=== PATIENT | male | born 1950 | race Caucasian/White ===

== ENCOUNTER 2024-08-15 09:00 | Outpatient (RCR) | payer MEDICARE, SELFPAY ==
[2024-04-18 12:54] LABS: Basophils Absolute Auto 0.03 K/uL (0.00-0.30); Basophils Percent Auto 0.6 % (0.0-3.0); Eosinophils Absolute Auto 0.21 K/uL (0.00-0.50); Eosinophils Percent Auto 4.5 % (0.0-7.0); Hematocrit 41.1 % (37.0-53.0); Hemoglobin* 13.2 gm/dL (13.5-17.5); Immature Granulocytes Abs Auto 0.01 K/uL (0.00-0.30); Immature Granulocytes Pct Auto 0.2 %; Lymphocytes Percent Auto 13.4 % (20-44); Mean Corpuscular HGB Conc 32 gm/dL (32-36); Mean Corpuscular Hemoglobin 31 pg (26-34); Mean Corpuscular Volume 97 fL (80-100); Monocytes Percent Auto 8.3 % (0.0-11.0); Platelet Count* 218 K/uL (140-440); RDW Coefficient of Variation % 13.2 % (11.5-15.5); Red Blood Count 4.23 m/uL (4.30-5.90); White Blood Count* 4.71 K/uL (4.50-11.00)
[2024-04-18 13:01] LABS: Slide Review Reflex No
[2024-04-18 13:05] LABS: Albumin* 4.5 g/dL (3.3-5.0)
[2024-04-18 13:06] LABS: Chloride* 100 mmol/L (96-114); Potassium* 4.4 mmol/L (3.6-5.1); Sodium* 138 mmol/L (135-149)
[2024-04-18 13:08] LABS: Anion Gap 8 mEq/L (7-15); Aspartate Amino Transferase* 25 U/L (12-35); Bilirubin Total* 0.5 mg/dL (0.1-1.5); Carbon Dioxide* 30 mmol/L (20-32); Creatinine* 0.8 mg/dL (0.5-1.5); Estimated Glomerular Filt Rate 93 ml/min
[2024-04-18 13:09] LABS: Alanine Aminotransferase* 12 U/L (4-50); Alkaline Phosphatase* 72 U/L (40-150); Blood Urea Nitrogen* 11 mg/dL (7-30); Calcium* 9.4 mg/dL (8.4-10.6); Glucose* 87 mg/dL (60-115); Total Protein* 7.8 g/dL (6.0-8.3)
[2024-04-18 13:44] LABS: PSA Diagnostic* < 0.06 ng/mL (0.10-4.00)
--- NOTE | 2024-04-25 13:53 | URNOTE ---
Request received for authorization for?Leuprolide Acetate? ([id number]). Prior authorization is not required as services are based on medical necessity and follow Medicare guidelines.
[2024-05-16 12:51] LABS: Basophils Absolute Auto 0.03 K/uL (0.00-0.30); Basophils Percent Auto 0.5 % (0.0-3.0); Eosinophils Absolute Auto 0.14 K/uL (0.00-0.50); Eosinophils Percent Auto 2.4 % (0.0-7.0); Hematocrit 41.8 % (37.0-53.0); Hemoglobin* 13.3 gm/dL (13.5-17.5); Immature Granulocytes Abs Auto 0.01 K/uL (0.00-0.30); Immature Granulocytes Pct Auto 0.2 %; Lymphocytes Percent Auto 12.4 % (20-44); Mean Corpuscular HGB Conc 32 gm/dL (32-36); Mean Corpuscular Hemoglobin 31 pg (26-34); Mean Corpuscular Volume 98 fL (80-100); Monocytes Percent Auto 7.2 % (0.0-11.0); Neutrophils Percent Auto 77.3 % (42.0-72.0); Platelet Count* 180 K/uL (140-440); RDW Coefficient of Variation % 13.5 % (11.5-15.5); Red Blood Count 4.26 m/uL (4.30-5.90); White Blood Count* 5.73 K/uL (4.50-11.00)
[2024-05-16 12:53] LABS: Slide Review Reflex No
[2024-05-16 13:03] LABS: Hemoglobin A1C* 5.2 % (0-5.6)
[2024-05-16 13:04] LABS: Albumin* 4.3 g/dL (3.3-5.0); Chloride* 101 mmol/L (96-114)
[2024-05-16 13:05] LABS: Potassium* 4.3 mmol/L (3.6-5.1); Sodium* 138 mmol/L (135-149)
[2024-05-16 13:07] LABS: Anion Gap 7 mEq/L (7-15); Aspartate Amino Transferase* 21 U/L (12-35); Bilirubin Total* 0.6 mg/dL (0.1-1.5); Blood Urea Nitrogen* 17 mg/dL (7-30); Carbon Dioxide* 30 mmol/L (20-32); Creatinine* 0.9 mg/dL (0.5-1.5); Est. Creatinine Clearance* 61.51; Estimated Glomerular Filt Rate 90 ml/min; Total Protein* 7.5 g/dL (6.0-8.3)
[2024-05-16 13:08] LABS: Alanine Aminotransferase* 12 U/L (4-50); Alkaline Phosphatase* 63 U/L (40-150); Calcium* 9.3 mg/dL (8.4-10.6); Glucose* 98 mg/dL (60-115)
[2024-05-16] MEDS: LEUPROLIDE ACETATE 22.5 MG (SQ) SYRINGE SUBCUT (14:25)
[2024-05-17 22:54] LABS: Cortisol, Serum 6.5 ug/dL
[2024-05-18 07:34] LABS: Adrenocorticotropic Hormone 56.2 pg/mL (7.2-63.3)
--- NOTE | 2024-08-01 15:36 | ONC.NURNOTE ---
Patient did not get monthly labs at his local clinic-lab orders were faxed at the time of his May appt will be going tomorrow for CBC CMP PSA [facility] [phone]
--- NOTE | 2024-08-05 14:37 | ONC.NURNOTE ---
3 -4 calls to [facility] to have CBC CMP PSA results faxed to [facility] never received the CBC results- not clear if canceled will need to repeat here when comes in for clinic appt
[2024-08-15 09:30] LABS: Basophils Absolute Auto 0.03 K/uL (0.00-0.30); Basophils Percent Auto 0.5 % (0.0-3.0); Eosinophils Absolute Auto 0.09 K/uL (0.00-0.50); Eosinophils Percent Auto 1.4 % (0.0-7.0); Hematocrit 43.3 % (37.0-53.0); Immature Granulocytes Abs Auto 0.02 K/uL (0.00-0.30); Immature Granulocytes Pct Auto 0.3 %; Lymphocytes Percent Auto 13.3 % (20-44); Mean Corpuscular HGB Conc 32 gm/dL (32-36); Mean Corpuscular Hemoglobin 32 pg (26-34); Mean Corpuscular Volume 100 fL (80-100); Monocytes Percent Auto 6.5 % (0.0-11.0); Platelet Count* 210 K/uL (140-440); RDW Coefficient of Variation % 13.6 % (11.5-15.5); Red Blood Count 4.34 m/uL (4.30-5.90); White Blood Count* 6.48 K/uL (4.50-11.00)
[2024-08-15 09:33] LABS: Slide Review Reflex No
[2024-08-15] MEDS: LEUPROLIDE ACETATE 22.5 MG (SQ) SYRINGE SUBCUT (10:50)
== END 2024-10-15 23:59 | disposition home or self-care (01) ==
LOC: CCIC 09:00
PROVIDERS: Clinical Nurse Specialist; Physician Assistant; Visit Provider Internal Medicine Hematology & Oncology
DX: C61 Malignant neoplasm of prostate (principal); E78.5 Hyperlipidemia, unspecified; D51.9 Vitamin B12 deficiency anemia, unspecified; R73.03 Prediabetes; I12.9 Hypertensive chronic kidney disease with stage 1 through stage 4 chronic kidney disease, or unspecified chronic kidney disease; N18.2 Chronic kidney disease, stage 2 (mild); Z87.891 Personal history of nicotine dependence
CPT/HCPCS: 36415; 80053; 82024; 82533; 83036; 84153; 85025; 96401; 96402; 99202; 99205; 99214; 99215; G0463; J9217

== ENCOUNTER 2025-02-15 14:36 | Outpatient (CLI) | payer MEDICARE, SELFPAY | END 2025-02-15 14:37 | disposition home or self-care (01) | LOC: NFLDREF 02-19 02:49 | PROVIDERS: Visit Provider Physician Assistant | DX: C61 Malignant neoplasm of prostate (principal); C77.2 Secondary and unspecified malignant neoplasm of intra-abdominal lymph nodes | CPT/HCPCS: 80076 ==

== ENCOUNTER 2025-03-13 13:19 | Outpatient (CLI) | payer MEDICARE, SELFPAY ==
--- NOTE | 2025-03-13 14:00 | CRLHL7_ITS ---
For Patients: As a result of the Century Cures Act, medical imaging exams and procedure reports are released immediately into your electronic medical record. You may view this report before your referring provider. If you have questions, please contact your health care provider. INDICATION: Malignant neoplasm of prostate, metastatic disease evaluation. TECHNIQUE: CT chest acquired with 75 cc Isovue 370 IV contrast. COMPARISON: None. FINDINGS: Lungs and pleura: Mild emphysema. Discoid atelectasis in the inferior lingula. Otherwise no acute infiltrates. 3 mm left lower lobe nodule (series 3, image 100). No pleural effusions, pleural thickening, or pneumothorax. Heart and vasculature: Heart size is normal. Thoracic aorta and pulmonary artery are normal in caliber. Mild coronary artery calcifications. Lymph nodes/mediastinum: No mediastinal, hilar, or axillary adenopathy. Thyroid gland is unremarkable. Chest wall: No masses. Upper abdomen: No significant findings. Bones: No suspicious osseous lesions. Mild thoracic spondylosis. Old bilateral rib fractures. IMPRESSION: 1. 3 mm left lower lobe nodule, indeterminate. 2. Otherwise no evidence of metastatic disease in the chest. Please note that all CT scans at this facility use dose modulation, iterative reconstruction, and/or weight-based dosing when appropriate to reduce radiation dose to as low as reasonably achievable. Dictated by Vinay Lozada MD @ 03/20/2025 3:04:37 PM (Electronically Signed)
[2025-03-13 14:05] LABS: Creatinine* 0.8 mg/dL (0.5-1.5); Estimated Glomerular Filt Rate 93 ml/min
== END 2025-03-13 13:20 | disposition home or self-care (01) ==
PROVIDERS: Visit Provider Physician Assistant
DX: C61 Malignant neoplasm of prostate (principal); R91.8 Other nonspecific abnormal finding of lung field; C77.2 Secondary and unspecified malignant neoplasm of intra-abdominal lymph nodes
CPT/HCPCS: 36415; 71260; 82565; Q9967

== ENCOUNTER 2025-03-30 16:32 | Outpatient (CLI) | payer MEDICARE, SELFPAY ==
--- NOTE | 2025-03-30 17:00 | CRLHL7_ITS ---
For Patients: As a result of the Century Cures Act, medical imaging exams and procedure reports are released immediately into your electronic medical record. You may view this report before your referring provider. If you have questions, please contact your health care provider. Indication: Prostate cancer, lung nodule Technique: Patient was injected in the left antecubital vein with 12.85 mCi FDG intravenously, with PET-CT imaging performed from the skull base to mid thighs [address] images were obtained for attenuation correction and localization, and do not replace a diagnostic quality examination. Blood glucose: 69 mg/dL. Comparison: Chest CT performed 03/13/2025 Findings: Liver background: SUVMean 3.4 Mediastinal blood pool background: SUVMean 3.0 Head and Neck Brain: No abnormal foci of uptake appreciated. Sinuses, orbits, mastoids: No significant abnormality or abnormal uptake appreciated. Oral cavity, pharynx, larynx: No significant abnormality or abnormal uptake appreciated. Lymph nodes: No enlarged or avid nodes appreciated. Thyroid: Grossly unremarkable. Chest Lungs: There is a nodule on the left lung measuring 15 x 8 millimeters, SUV max 19.3. Distal atelectasis noted. Multiple nodules which appear to be pleural in nature without definite CT correlate are noted throughout the left lung most avid measuring SUV max 7.8. Mediastinum: Calcified atherosclerosis. Lymph nodes: No enlarged or avid nodes appreciated. Abdomen and Pelvis Hepatobiliary: No abnormal foci of uptake. No significant abnormality appreciated. Spleen: Unremarkable. Pancreas: Unremarkable. Adrenal glands: Unremarkable. Kidneys: Parenchyma appears grossly unremarkable with no abnormal uptake appreciated. No calculi. No hydronephrosis. Bowel: No abnormal focal uptake appreciated. No mass lesion. Vascular: Calcified atherosclerosis. Lymph nodes: No enlarged or avid nodes appreciated. Peritoneum: No avid mass. No free air. No free fluid. : Postsurgical changes. Mild bladder wall thickening. Soft tissues: No avid soft tissue lesion appreciated. Bones: Solitary uptake was then a chronic right rib fracture along the 5th rib likely related to osseous remodeling. Impression: 1. Marked avidity within a 15 x 8 millimeter left lung nodule within the lingula abutting the fissure concerning for malignancy. Note is also made of multiple tiny areas of uptake along the left pleura without definite CT correlate suspicious for tiny pleural metastases. 2. Focal uptake within a chronic fracture of the right lateral 5th rib likely related to continued osseous remodeling without definite underlying osseous lesion appreciated. 3. No other focal abnormal uptake appreciated. Dictated by Dre Celestin MD @ 04/01/2025 9:01:29 PM (Electronically Signed)
== END 2025-03-30 16:33 | disposition home or self-care (01) ==
LOC: RAD 16:44
PROVIDERS: Visit Provider Physician Assistant
DX: R91.8 Other nonspecific abnormal finding of lung field (principal)
CPT/HCPCS: 78815; A9552

== ENCOUNTER 2025-05-03 11:30 | Outpatient (RCR) | payer MEDICARE, SELFPAY ==
[2024-11-07 10:39] LABS: Hematocrit 43.4 % (37.0-53.0); Hemoglobin* 14.1 gm/dL (13.5-17.5); Immature Granulocytes Abs Auto 0.01 K/uL (0.00-0.30); Immature Granulocytes Pct Auto 0.2 %; Mean Corpuscular HGB Conc 33 gm/dL (32-36); Mean Corpuscular Hemoglobin 32 pg (26-34); Mean Corpuscular Volume 98 fL (80-100); RDW Coefficient of Variation % 13.2 % (11.5-15.5); Red Blood Count 4.43 m/uL (4.30-5.90); White Blood Count* 4.87 K/uL (4.50-11.00)
[2024-11-07 10:48] LABS: Lymphocytes Absolute Auto 0.80 K/uL (0.90-2.90); Slide Review Reflex No
[2024-11-07 10:59] LABS: Albumin* 4.5 g/dL (3.3-5.0); Chloride* 104 mmol/L (96-114); Potassium* 4.0 mmol/L (3.6-5.1); Sodium* 142 mmol/L (135-149)
[2024-11-07 11:01] LABS: Anion Gap 9 mEq/L (7-15); Bilirubin Total* 0.7 mg/dL (0.1-1.5); Blood Urea Nitrogen* 20 mg/dL (7-30); Carbon Dioxide* 29 mmol/L (20-32); Creatinine* 0.9 mg/dL (0.5-1.5); Estimated Glomerular Filt Rate 90 ml/min
[2024-11-07 11:02] LABS: Alanine Aminotransferase* 15 U/L (4-50); Alkaline Phosphatase* 62 U/L (40-150); Aspartate Amino Transferase* 20 U/L (12-35); Calcium* 9.3 mg/dL (8.4-10.6); Glucose* 110 mg/dL (60-115); Total Protein* 7.6 g/dL (6.0-8.3)
[2024-11-07 11:35] LABS: PSA Diagnostic* < 0.06 ng/mL (0.10-4.00)
[2024-11-07] MEDS: LEUPROLIDE ACETATE (ELIGARD) 22.5 MG INJ SUBCUT (12:02)
--- NOTE | 2024-11-28 14:13 | ONC.NURNOTE ---
Lab frequency discussed with Melyssa- Due to low dose abiaterone- monitoring of lab has been Q 3 mths intervals next lab will be due with RTC in January no additional monthly lab needed at this time
[2025-01-30 10:22] LABS: Hematocrit 46.2 % (37.0-53.0); Hemoglobin* 14.7 gm/dL (13.5-17.5); Immature Granulocytes Abs Auto 0.01 K/uL (0.00-0.30); Immature Granulocytes Pct Auto 0.1 %; Mean Corpuscular HGB Conc 32 gm/dL (32-36); Mean Corpuscular Hemoglobin 32 pg (26-34); Mean Corpuscular Volume 100 fL (80-100); RDW Coefficient of Variation % 13.7 % (11.5-15.5); Red Blood Count 4.64 m/uL (4.30-5.90); White Blood Count* 6.74 K/uL (4.50-11.00)
[2025-01-30 10:29] LABS: Lymphocytes Absolute Auto 0.90 K/uL (0.90-2.90); Slide Review Reflex No
[2025-01-30 10:41] LABS: Albumin* 4.5 g/dL (3.3-5.0); Chloride* 106 mmol/L (96-114); Potassium* 3.6 mmol/L (3.6-5.1); Sodium* 145 mmol/L (135-149)
[2025-01-30 10:44] LABS: Alanine Aminotransferase* 19 U/L (4-50); Alkaline Phosphatase* 57 U/L (40-150); Anion Gap 9 mEq/L (7-15); Aspartate Amino Transferase* 27 U/L (12-35); Bilirubin Total* 0.7 mg/dL (0.1-1.5); Blood Urea Nitrogen* 14 mg/dL (7-30); Calcium* 9.9 mg/dL (8.4-10.6); Carbon Dioxide* 30 mmol/L (20-32); Creatinine* 0.9 mg/dL (0.5-1.5); Est. Creatinine Clearance* 60.59; Estimated Glomerular Filt Rate 90 ml/min; Glucose* 94 mg/dL (60-115); Total Protein* 7.9 g/dL (6.0-8.3)
[2025-01-30 11:15] LABS: PSA Diagnostic* 0.14 ng/mL (0.10-4.00)
[2025-01-30] MEDS: LEUPROLIDE ACETATE (ELIGARD) 22.5 MG INJ SUBCUT (12:42)
[2025-01-31 09:56] LABS: Testosterone, Adult Male <3 ng/dL (300-720)
--- NOTE | 2025-02-02 12:39 | ONC.NURNOTE ---
Addendum entered by Massiel Robison RN 02/06/25 12:36: Upcoming appts reviewed to son Abraham: PSMA PET in [facility] 1st floor 02/21/25 2 pm arrival- prePET instructions will be delivered to patient thru his [place] portal Follow up with Melyssa and repeat LFTs on 02/23/25 Other lab: LFTs due in [facility] later this week Abraham is agreeable to this schedule Original Note: Coordination of next steps with son Abraham: -aware that order placed for PSMA PET to be done in [place] next 1-2 weeks -RTC 3 weeks -increase abiraterone dose to 500mg/day -weekly LFTs to be done at [facility]
--- NOTE | 2025-02-13 14:39 | ONC.NURNOTE ---
FMLA forms completed by RN and signed by Dr Long Per Abraham's request- form was emailed to his work at [email or web address] copy placed in patients chart
--- NOTE | 2025-02-17 09:15 | ONC.NURNOTE ---
LFTs reviewed by Melyssa HESTER and called to Abraham by fha underwriter next weeks appt reviewed
[2025-02-23 10:43] LABS: Albumin* 4.4 g/dL (3.3-5.0)
[2025-02-23 10:45] LABS: Alanine Aminotransferase* 26 U/L (4-50); Aspartate Amino Transferase* 35 U/L (12-35); Total Protein* 7.7 g/dL (6.0-8.3)
[2025-02-23 10:46] LABS: Alkaline Phosphatase* 64 U/L (40-150); Bilirubin Direct* 0.2 mg/dL (0.0-0.5); Bilirubin Total* 0.9 mg/dL (0.1-1.5)
--- NOTE | 2025-03-02 14:28 | ONC.NURNOTE ---
Pt's son Abraham called stating pt has a new pain in his neck that hurts to touch and a cramping radiating pain to his shoulders. Pt was examined one week ago by Melyssa Garcia and did not have this pain at that time. Pt rates pain a 6-710. Discussed with Melyssa Garcia PA-C and se recommends having pt be examined by urgent care or another provider today for possible imaging. Pt's son Abraham verbalized understanding of Melyssa Garcia's recommendation.
[2025-03-23 11:51] LABS: Albumin* 4.4 g/dL (3.3-5.0); Chloride* 103 mmol/L (96-114); Potassium* 4.0 mmol/L (3.6-5.1); Sodium* 139 mmol/L (135-149)
[2025-03-23 11:53] LABS: Blood Urea Nitrogen* 15 mg/dL (7-30); Creatinine* 0.9 mg/dL (0.5-1.5); Est. Creatinine Clearance* 60.59; Estimated Glomerular Filt Rate 90 ml/min
[2025-03-23 11:54] LABS: Alanine Aminotransferase* 14 U/L (4-50); Alkaline Phosphatase* 54 U/L (40-150); Anion Gap 6 mEq/L (7-15); Aspartate Amino Transferase* 23 U/L (12-35); Bilirubin Direct* 0.1 mg/dL (0.0-0.5); Bilirubin Total* 0.7 mg/dL (0.1-1.5); Calcium* 10.0 mg/dL (8.4-10.6); Carbon Dioxide* 30 mmol/L (20-32); Glucose* 91 mg/dL (60-115); Total Protein* 7.4 g/dL (6.0-8.3)
[2025-03-23 12:25] LABS: PSA Diagnostic* 0.33 ng/mL (0.10-4.00)
--- NOTE | 2025-03-24 10:17 | ONC.NURNOTE ---
Foundation One liquid biopsy sent
--- NOTE | 2025-04-03 15:19 | ONC.NURNOTE ---
Addendum entered by Massiel Robison RN 04/04/25 10:00: Daughter Mirela Nettles phoned today- her brother is traveling until tomorrow, but got the message about the pulmonology referral Mirela requests [facility]- because it is closer for [place]- a Thursday or Thursday would be preferable Mirela is asking about next steps- which is unknown until biopsy is done Original Note: Left message with son Abraham regarding pt needing a pulmonary consult. Melyssa Garcia PA-C wondering if pt would like to go to [facility] or [facility] for the consult. Will need to update Melyssa with this information.
--- NOTE | 2025-04-07 08:11 | ONC.NURNOTE ---
Pulmonology referral faxed to [facility] Cristina Fernando.
--- NOTE | 2025-04-13 09:56 | ONC.NURNOTE ---
Pt's son called to inquire about size of lung nodule on PET scan as [facility] needs that info to schedule. RN provided Abraham with the info he needed.
--- NOTE | 2025-04-17 09:49 | ONC.NURNOTE ---
Patient's daughter called today requesting to have patient's records sent to [facility], per daughter patient has a new lung nodule and they want to move somewhere closer to home. He has an appt on 05/03 that they want to keep. RN transferred daughter to Medical Records to help with having records sent.
[2025-05-03 12:07] LABS: Chloride* 102 mmol/L (96-114); Hematocrit 41.9 % (37.0-53.0); Hemoglobin* 13.3 gm/dL (13.5-17.5); Immature Granulocytes Abs Auto 0.00 K/uL (0.00-0.30); Immature Granulocytes Pct Auto 0.0 %; Mean Corpuscular HGB Conc 32 gm/dL (32-36); Mean Corpuscular Hemoglobin 32 pg (26-34); Mean Corpuscular Volume 101 fL (80-100); RDW Coefficient of Variation % 13.4 % (11.5-15.5); Red Blood Count 4.14 m/uL (4.30-5.90); White Blood Count* 5.60 K/uL (4.50-11.00)
[2025-05-03 12:08] LABS: Albumin* 4.0 g/dL (3.3-5.0); Lymphocytes Absolute Auto 0.70 K/uL (0.90-2.90); Potassium* 4.2 mmol/L (3.6-5.1); Slide Review Reflex No; Sodium* 141 mmol/L (135-149)
[2025-05-03 12:10] LABS: Blood Urea Nitrogen* 20 mg/dL (7-30); Creatinine* 0.9 mg/dL (0.5-1.5); Est. Creatinine Clearance* 60.59; Estimated Glomerular Filt Rate 90 ml/min
[2025-05-03 12:11] LABS: Alanine Aminotransferase* 14 U/L (4-50); Alkaline Phosphatase* 53 U/L (40-150); Anion Gap 5 mEq/L (7-15); Aspartate Amino Transferase* 23 U/L (12-35); Bilirubin Total* 0.7 mg/dL (0.1-1.5); Calcium* 8.9 mg/dL (8.4-10.6); Carbon Dioxide* 34 mmol/L (20-32); Glucose* 103 mg/dL (60-115); Total Protein* 7.2 g/dL (6.0-8.3)
[2025-05-03 13:08] LABS: PSA Diagnostic* 0.46 ng/mL (0.10-4.00)
[2025-05-03] MEDS: LEUPROLIDE ACETATE (ELIGARD) 22.5 MG INJ SUBCUT (14:02)
== END 2025-05-06 23:59 | disposition home or self-care (01) ==
LOC: CCIC 11:30
PROVIDERS: Physician Assistant; Visit Provider Internal Medicine Hematology & Oncology
DX: C61 Malignant neoplasm of prostate (principal); C79.51 Secondary malignant neoplasm of bone; C77.2 Secondary and unspecified malignant neoplasm of intra-abdominal lymph nodes; R91.1 Solitary pulmonary nodule; Z79.818 Long term (current) use of other agents affecting estrogen receptors and estrogen levels; Z87.891 Personal history of nicotine dependence; R00.1 Bradycardia, unspecified; I12.9 Hypertensive chronic kidney disease with stage 1 through stage 4 chronic kidney disease, or unspecified chronic kidney disease; N18.2 Chronic kidney disease, stage 2 (mild); E78.5 Hyperlipidemia, unspecified; D51.9 Vitamin B12 deficiency anemia, unspecified
CPT/HCPCS: 36415; 80048; 80053; 80076; 84153; 84403; 85025; 96402; 99000; 99001; 99214; 99215; G0463; J9217